=== PATIENT | male | born 1970 | race Caucasian/White ===

== ENCOUNTER 2025-02-03 08:47 | Outpatient (CLI) | payer OTHER, SELFPAY ==
--- NOTE | ~2025-02-03 | MR_ITS ---
MRI of the left shoulder Technique: Axial proton-density fat-sat images, coronal proton density fat-sat and T2 fat-sat images, and sagittal T1-weighted and T2 fat-sat images were acquired. Clinical History: Pain Findings: There is minimal AC joint degenerative change with small subacromial spur. Coracoclavicular , coracoacromial, and coracohumeral ligaments are intact. Supraspinatus and infraspinatus tendons are intact, with mild tendinosis, but no partial or full-thic kness tear. Subscapularis tendon is intact with moderate tendinosis. Tendon of long head of the bicep s is intact. No labral tear evident. Inferior glenohumeral ligament is intact. There is minimal glenohumeral joint effusion. No significan t degenerative change of the glenohumeral joint. There is prominent fluid distention of the subacromi al/subdeltoid bursa. No muscle atrophy or edema. Impression: Subacromial/subdeltoid bursitis. Minimal AC joint degenerative change. Mild rotator cuff tendinosis. Reviewed, dictated and finalized at [facility]. Impression: Subacromial/subdeltoid bursitis. Minimal AC joint degenerative change. Mild rotator cuff tendinosis.
--- NOTE | ~2025-02-03 | MR_ITS ---
MRI of the lumbar spine Clinical History: Back pain Technique: Axial T2-weighted images, and sagittal T1-weighted, T2-weighted, and T2 fat-sat images wer e acquired. Findings: There is no fracture or subluxation of the lumbar spine. Vertebral bodies maintain normal h eight and alignment. No bone marrow signal reality seen. At L1-L2, there is moderate degenerative disc narrowing, with minimal disc bulge. No spinal canal pat nosis or neural foraminal narrowing. At L2-L3, there is no disc bulge or herniation. No spinal canal stenosis or neural foraminal narrowin g. At L3-L4 and L4-L5, there is no disc bulge or herniation. There are mild facet joint degenerative william nges at these levels, especially L4-L5. No spinal canal stenosis. Probable minimal neural foraminal n arrowing bilaterally at L4-L5. At L5-S1, there is mild degenerative disc narrowing. There is mild disc bulge with advanced facet art hropathy. No central canal stenosis. There is moderate to advanced bilateral neural foraminal narrowi ng. Paravertebral soft tissues are unremarkable. Impression: Moderate degenerative spondylosis at L5-S1. Mild degenerative spondylosis in the remainder of the lumbar spine. Reviewed, dictated and finalized at location . Impression: Moderate degenerative spondylosis at L5-S1. Mild degenerative spondylosis in the remainder of the lumbar spine.
--- OUTSIDE RECORDS SUMMARY | 2025-02-03 08:52 | XMS_ITS | Continuity of Care Document ---
Author Name Zenaida Florentino Address [address] [facility] [place] [address] Organization Unknown Address [address] [facility] [address] [place] [address] Medications No known medications Problems No known problems
--- OUTSIDE RECORDS SUMMARY | 2025-02-03 08:52 | XMS_ITS | Continuity of Care Document ---
Author Name Zenaida Florentino Address [address] [facility] [place] [address] Organization Unknown Address [address] [facility] [place] [address] Medications No known medications Problems No known problems
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
== END 2025-02-03 08:48 | disposition home or self-care (01) ==
PROVIDERS: PCP Physician Assistant; Visit Provider Physician Assistant
DX: M75.52 Bursitis of left shoulder (principal); M47.897 Other spondylosis, lumbosacral region; M47.896 Other spondylosis, lumbar region
CPT/HCPCS: 72148; 73221

== ENCOUNTER 2025-03-20 10:16 | Outpatient (CLI) | payer OTHER, SELFPAY ==
--- NOTE | ~2025-03-20 | MR_ITS ---
EXAMINATION: MR cervical spine wo con DATE: 03/20/2025 10:55 INDICATION: Neck pain. TECHNIQUE: Magnetic resonance imaging (MRI) of the cervical spine was performed without intravenous contrast. COMPARISON: None FINDINGS: Alignment is normal. Vertebral body heights are normal. There is moderately decreased disc height at C2-C3 and C3-C4, mildly decreased disc height at C4-C5 and C5-C6, and moderately decreased disc height at C6-C7. The spinal cord signal intensity is normal. The following disc levels are speci fically discussed: C2-C3: There is a central protrusion. There is moderate right and mild left uncovertebral joint osteoarthritis. There is severe right and mild left facet joint osteoarthritis. There is mild bilateral neural foraminal stenosis. There is mild central canal stenosis. C3-C4: There is a left central extrusion. There is mild right and severe left uncovertebral joint osteoarthritis. There is severe bilateral facet joint osteoarthritis. There is mild right and moderate left neural foraminal stenosis. There is mild central canal stenosis. C4-C5: There is a central protrusion. There is mild right and moderate left uncovertebral joint osteoarthritis. There is severe bilateral facet joint osteoarthritis. There is mild left neural foraminal stenosis. There is mild central canal stenosis. C5-C6: The disc is bulging. There is mild right and moderate left uncovertebral joint osteoarthritis. There is moderate bilateral facet joint osteoarthritis. There is mild bilateral neural foraminal stenosis. There is mild central canal stenosis. C6-C7: The disc is bulging. There is mild right and moderate left uncovertebral joint osteoarthritis. There is moderate left facet joint osteoarthritis. There is mild left neural foraminal stenosis. There is mild central canal stenosis. C7-T1: The disc does not extend beyond the endplate margin. There is no uncovertebral joint osteoarthritis. There is severe bilateral facet joint osteoarthritis. There is mild bilateral neural foraminal stenosis. There is no central canal stenosis. IMPRESSION: 1. Moderate cervical spondylosis. Reviewed, dictated and finalized at location E.
== END 2025-03-20 10:17 | disposition home or self-care (01) ==
PROVIDERS: PCP Physician Assistant; Visit Provider Physician Assistant
DX: M47.892 Other spondylosis, cervical region (principal)
CPT/HCPCS: 72141